=== PATIENT | male | born 1985 | race Caucasian/White ===

== ENCOUNTER 2016-09-29 12:15 | Emergency (ER) | payer OTHER ==
[~2016-09-29] VITALS: Ht 185.4 cm; Wt 108.9 kg
[2016-09-29 12:22] VITALS: BP 130/58
== END 2016-09-29 16:03 | disposition left against medical advice (07) ==
LOC: ER 12:15
DX: H57.8 Other specified disorders of eye and adnexa (principal); Z53.21 Procedure and treatment not carried out due to patient leaving prior to being seen by health care provider